=== PATIENT | female | born 1995 | race Caucasian/White ===

== ENCOUNTER 2016-10-07 22:40 | Emergency (ER) | payer OTHER ==
[~2016-10-07] VITALS: Ht 162.6 cm; Wt 76.0 kg
[2016-10-07 22:43] VITALS: TEMP 37.1; Ht 162.6 cm; Wt 76.0 kg
[2016-10-07] MEDS ORDERED: BCPILLS PO (23:00)
[2016-10-07] MEDS ORDERED: SERT-234 PO (23:00)
[2016-10-07] MEDS ORDERED: EPP3/2 IM (23:00)
--- NOTE | 2016-10-07 23:24 | EMERGENCY ROOM VISIT NOTE ---
History Report prepared by Hema: Susi Booth Under the Supervision of: Dr. Dannielle Castano D.O. First contact with patient: 23:07 Chief Complaint: STD FEMALE Stated Complaint: VAGINAL SORES History of Present Illness The patient is a 21 year old female who presents to the Emergency Room with complaints of persistent vaginal sores that began one week ago. The patient states that last Sunday she went to the [employer] [place] concert and had been outside sweating all day and then went to the bars afterwards. She states that she had stayed in her clothes all day, noting that she then noticed irritation to her vaginal area. The patient states that she had just shaved her vaginal area prior. She states that she noticed increased irritation when wearing jeans. The patient states that she uses protection with sex. She denies any nausea, vomiting, abdominal pain, or difficulty urinating or moving her bowels. Source of History: patient Onset: one week ago Position: other (vaginal) Quality: other (sores) Timing: other (persistent) Modifying Factors (Worsening): other (wearing jeans) Associated Symptoms: No abdominal pain, No nausea, No urinary symptoms, No vomiting Review of Systems See HPI for pertinent positives & negatives. A total of 10 systems reviewed and were otherwise negative. Past Medical & Surgical Medical Problems: (1) History of supraventricular tachycardia (2) Migraine Surgical Problems: (1) H/O cardiac radiofrequency ablation (2) History of cardiac radiofrequency ablation Family History Cancer Diabetes mellitus Heart disease Hypertension Kidney disease Kidney stones Social History Smoking Status: Never Smoker Smokeless Tobacco Use: No Alcohol Use: occasionally Marital Status: single Housing Status: lives with roommate Occupation Status: employed, [employer] student Current/Historical Medications Scheduled Control Pills ( Control Pills), 1 TAB PO QPM Sertraline (Zoloft), 100 MG PO QPM Valacyclovir Hcl (Valtrex), 1,000 MG PO BID Scheduled PRN Epinephrine (Epipen), 0.3 MG IM UD PRN for ALLERGIC REACTION Allergies Coded Allergies: BEE STING (Verified Allergy, Severe, ANAPHYLAXIS, 10/07/16) Wasp (Verified Allergy, Severe, ANAPHYLAXIS, 10/07/16) Physical Exam Vital Signs Date Time Temp Pulse Resp B/P Pulse Ox O2 Delivery O2 Flow Rate FiO2 10/08/16 02:25 72 18 139/97 100 Room Air 10/08/16 00:43 86 19 146/95 97 Room Air 10/07/16 22:43 37.1 106 18 147/102 99 Room Air Physical Exam Heart: Regular rate and rhythm. No murmurs appreciated Lungs: Clear to auscultation bilaterally with no wheezes, rales, or rhonchi. Abdomen: Soft, completely nontender, nondistended, with good bowel sounds. There are no palpable pulsatile masses or hepatosplenomegaly. There is no guarding, rigidity, or rebound noted. Pelvic: Vesicular lesions about the labia and on the cervix, thick white vaginal discharge, mild pain on bimanual examination on right adnexa, no cervical motion tenderness. Extremities: No evidence of cyanosis, clubbing, or edema. There are easily palpable peripheral pulses. Skin: warm and dry with good turgor and no rashes. Medical Decision & Procedures Laboratory Results Test 10/08/16 00:28 Date/Time Source Procedure Growth Status 10/08/16 00:28 Cervix Swab Trichomonas Preparation - Final Complete Laboratory results per my review. Medications Administered Medications (Trade) Dose Ordered Sig/Agus Route Start Time Stop Time Status Last Admin Dose Admin Valacyclovir HCl (Valtrex Tab) 1,000 mg NOW ONCE PO 10/08/16 01:15 10/08/16 01:16 DC 10/08/16 01:07 1,000 MG Procedure The patient was treated with Valtrex Tab 1000 mg PO. ED Course 2315: Past medical records reviewed. The patient was evaluated in room A10. A complete history and physical exam was performed. A urine specimen was obtained and was dipped negative. 0015: I performed the pelvic exam at this time. See physical exam for further detail. 0115: Ordered Valtrex Tab 1000 mg PO. 0208: I reevaluated the patient and she is resting comfortably. I discussed the exam findings with her and I discussed the treatment plan. She verbalized complete understanding and agreement. She is ready to go home. Medical Decision The patient is a 21 year old female who presents to the ED with vaginal sores. Differential diagnosis includes herpes, folliculitis, Bartholin's cyst On physical exam, the patient does have sores about the labia and cervix which are concerning for herpes. On preliminary Gram stain, there are no clue cells or yeast. The patient will be treated with Valtrex and appropriate viral cultures were sent. Impression Primary Impression: Genital herpes Scribe Attestation The scribe's documentation has been prepared under my direction and personally reviewed by me in its entirety. I confirm that the note above accurately reflects all work, treatment, procedures, and medical decision making performed by me. Departure Information Dispostion Home / Self-Care Prescriptions Valacyclovir Hcl (VALTREX) 1 Gm Tab 1000 MG PO BID, #20 TAB Prov: Dannielle Castano D.O. 10/08/16 Referrals No Doctor, Assigned (PCP) Forms HOME CARE DOCUMENTATION FORM, IMPORTANT VISIT INFORMATION, WORK / SCHOOL INSTRUCTIONS Patient Instructions My [facility] Additional Instructions Valtrex - 1 tab. every 12 hours for 10 days Follow up with gynecology You can call back to the ER for your results on Sunday - [phone] Problem Qualifiers Primary Impression: Genital herpes Herpes simplex infection site: vulvovaginitis Qualified Codes: A60.04 - Herpesviral vulvovaginitis
[2016-10-08] MEDS ORDERED: VALA1TAB2 PO (02:17)
[2016-10-08 02:25] VITALS: BP 139/97; PULSE 72; O2SAT 100
[2016-10-11 01:35] LABS: HSV TYPE 1 DNA Detected (Not Detected); HSV TYPE 1&2 DNA SOURCE Vagina; HSV TYPE 2 DNA Not Detected (Not Detected)
[2016-10-11 01:36] LABS: CHLAMYDIA TRACH RNA*** NOT DETECTED (NOT DETECTED); GC (NEIS GONORRHOEAE)RNA** NOT DETECTED (NOT DETECTED)
== END 2016-10-08 02:25 | disposition home or self-care (01) ==
LOC: C.EDB 22:40 → C.EDA 10-08 02:25
DX: A60.04 Herpesviral vulvovaginitis (principal); Z83.3 Family history of diabetes mellitus; Z82.49 Family history of ischemic heart disease and other diseases of the circulatory system